=== PATIENT | male | born 1995 | race Caucasian/White ===

== ENCOUNTER 2017-07-11 18:03 | Emergency (ER) | payer BC ==
[~2017-07-11] VITALS: Ht 190.5 cm; Wt 80.3 kg
--- NOTE | 2017-07-11 18:19 | NUR ---
PATIENT AMBULATED TO BED 2.
[2017-07-11 18:23] VITALS: BP 120/62
[2017-07-11] MEDS ORDERED: AMPH30CE PO (18:29)
[2017-07-11] MEDS ORDERED: BACITRACIN OINT 500 UNITS/GM PKT TP ONE (18:50)
--- NOTE | 2017-07-11 18:53 | NUR ---
patient brought in by private vehicle for c/o left wrist burn while cooking x 10 days ago. patient is alert and oriented x 4. respirations are even and unlabored. denies any cough, dypnea, n,v,d. observed two areas to left wrist. slight redness observed, no drainage or swelling noted. skin is dry, cool to touch bilaterally. capillary refill < 3 seconds. patient states " I didn't clean my wrist for the first three days, but then started cleaning it with soap/honey/hydrogen peroxide." educated patient on s/s of infection, verbalizes understanding of teaching. will continue to monitor.
--- NOTE | 2017-07-11 19:22 | NUR ---
Pt report given to ISIDRO Rhodes. Transfer of care at this time.
[2017-07-11 19:39] VITALS: BP 119/71
--- NOTE | 2017-07-11 19:40 | NUR ---
Patient discharged with v/s stable. Written and verbal after care instructions given and explained. Patient alert, oriented and verbalized understanding of instructions. Ambulatory with steady gait. All questions addressed prior to discharge. ID band removed. Patient advised to follow up with PMD. Rx of BACITRACIN 500U/G given. Patient educated on indication of medication including possible reaction and side effects. Opportunity to ask questions provided and answered.
== END 2017-07-11 19:40 | disposition home or self-care (01) ==
LOC: MED 18:03
DX: T23.272A Burn of second degree of left wrist, initial encounter (principal); Z79.899 Other long term (current) drug therapy; X12.XXXA Contact with other hot fluids, initial encounter; Y93.G3 Activity, cooking and baking; Y92.89 Other specified places as the place of occurrence of the external cause; Y99.8 Other external cause status
CPT/HCPCS: 99282